=== PATIENT | female | born 1995 | race Caucasian/White ===

== ENCOUNTER 2018-12-23 08:03 | Emergency (ER) | payer MEDICAID ==
--- NOTE | 2018-12-23 08:32 | NUR ---
BIB FATHER C/O FRONTAL ALEXANDER&NAUSEA X 1 DAY. DENIES V/D.DENIES N/V/D; SKIN IS PINK/WARM/DRY; AAOX4 WITH EVEN AND STEADY GAIT; LUNGS CLEAR BL; HR EVEN AND REGULAR; PT DENIES ANY FEVER, CP, SOB, OR COUGH AT THIS TIME; PATIENT STATES PAIN OF 8/10 AT THIS TIME;PATIENT POSITIONED FOR COMFORT; HOB ELEVATED; BEDRAILS UP X1; BED DOWN. ER MD MADE AWARE OF PT STATUS.
--- NOTE | 2018-12-23 08:40 | NUR ---
FOR TRIAGE SEE PAPER CHARTING
[2018-12-23] MEDS ORDERED: diphenhydrAMINE 50 MG/ML VIAL IM ONE (08:45)
[2018-12-23] MEDS ORDERED: PROCHLORPERAZINE 10 MG/2 ML VIAL IM ONE (08:45)
[2018-12-23 09:13] VITALS: BP 107/71
== END 2018-12-23 09:11 | disposition home or self-care (01) ==
LOC: MED 08:03
DX: G43.909 Migraine, unspecified, not intractable, without status migrainosus (principal)
CPT/HCPCS: 96372; 99283; J0780; J1200; 81002; 81025

== ENCOUNTER 2019-08-30 15:51 | Emergency (ER) | payer MEDICAID ==
[~2019-08-30] VITALS: Ht 157.5 cm; Wt 64.9 kg
[2019-08-30 15:53] VITALS: BP 114/54
[2019-08-30 16:53] LABS: APPEARANCE,URINE SL CLOUDY (CLEAR); BILIRUBIN,URINE NEGATIVE (NEGATIVE); BLOOD, URINE 3+ (NEGATIVE); COLOR,URINE AMBER (YELLOW); LEUKOCYTE ESTERASE ,URINE 1+ (NEGATIVE); NITRITE, URINE POSITIVE (NEGATIVE); UGLUCOSE NEGATIVE (NEGATIVE)
[2019-08-30 17:15] LABS: BASOPHILS # (AUTO) 0.1 K/uL (0.00-0.22); BASOPHILS % (AUTO) 0.6 % (0.0-2.0); EOSINOPHILS # (AUTO) 0.1 K/uL (0-0.4); EOSINOPHILS % (AUTO) 1.1 % (0.0-4.0); HEMATOCRIT 40.5 % (36-48); HEMOGLOBIN 13.4 g/dL (12.0-16.0); LYMPHOCYTES # (AUTO) 2.6 K/uL (2.5-16.5); LYMPHOCYTES % (AUTO) 25.2 % (20.5-51.1); MEAN CORPUSCULAR HEMOGLOBIN 30 pg (27-31); MEAN CORPUSCULAR HGB CONC 33 g/dL (33-37); MEAN CORPUSCULAR VOLUME 89.7 fL (80-94); MONOCYTES # (AUTO) 0.7 K/uL (0.8-1.0); MONOCYTES % (AUTO) 6.5 % (1.7-9.3); NEUTROPHILS # (AUTO) 6.8 K/uL (1.8-7.7); NEUTROPHILS % (AUTO) 66.6 % (42.2-75.2); PLATELET COUNT (AUTO) 329 K/uL (140-450); RED BLOOD CELL COUNT(AUTO) 4.51 MIL/uL (4.20-5.40); RED CELL DISTRIBUTION WIDTH 13.8 % (11.6-13.7); WHITE BLOOD COUNT (AUTO) 10.2 K/uL (4.8-10.8)
[2019-08-30 17:25] LABS: RBC,URINE >20 (MANY) /HPF (0-5); WBC,URINE >25 (MANY) /HPF (0-5)
[2019-08-30 17:36] LABS: ALBUMIN 3.8 g/dL (3.4-5.0); ANION GAP 7.9 (8-16); CARBON DIOXIDE 30.7 mmol/L (21-32); CREATININE 0.6 mg/dL (0.6-1.3); POTASSIUM 3.6 mmol/L (3.5-5.1); TOTAL BILIRUBIN 1.1 mg/dL (0.0-1.0)
--- NOTE | 2019-08-30 17:49 | NUR ---
Stable. VSS. C/O Pain. Awaiting Preg for meds.
[2019-08-30] MEDS ORDERED: KETOROLAC 30 MG/ML VIAL IM ONE (17:55)
[2019-08-30 18:23] VITALS: BP 114/78
--- NOTE | 2019-08-30 18:25 | NUR ---
Stable. VSS. Afebrile. Minimal pain. MD has reassessed and Dc'd home. To exit
== END 2019-08-30 18:27 | disposition home or self-care (01) ==
LOC: MED 15:51
DX: N39.0 Urinary tract infection, site not specified (principal)
CPT/HCPCS: 36415; 76856; 80053; 81001; 81025; 85025; 87086; 93976; 96372; 99284; J1885; Q0092

== ENCOUNTER 2021-01-27 15:30 | Emergency (ER) | payer MEDICAID ==
[~2021-01-27] VITALS: Ht 157.5 cm; Wt 93.0 kg
[2021-01-27 15:59] VITALS: BP 129/79
--- NOTE | 2021-01-27 16:03 | NUR ---
ASKED PT TO WAIT IN LOBBY.
--- NOTE | 2021-01-27 17:00 | NUR ---
PT AMBULATED TO BED
--- NOTE | 2021-01-27 17:00 | NUR ---
Patient ambulated to bed 11 with steady/even gait.
[2021-01-27] MEDS ORDERED: ERYT5OIN51 OP (17:01)
--- NOTE | 2021-01-27 17:04 | NUR ---
25 y/o F BIB family with c/c Left eye swelling/pain. Patient A&Ox4, ambulatory, states left eye swelling that began night. Patient reports left eye stye with swelling and redness with +bleeding +white drainage +tears +"scratchy" feeling on left eye. Patient reports 5/10, dull/constant, non-radiating pain that worsens with looking down. Patient states Stye eye drops with temporary ~20min relief. Patient denies fever, chills, hives, rashes, injury. Bed locked in lowest position, side rails x 1, call light in reach. PMH/Sx/Meds: Denies NKA
--- NOTE | 2021-01-27 17:05 | NUR ---
YG Arnold is evaluating patient at bedside.
[2021-01-27 17:18] VITALS: BP 129/79
--- NOTE | 2021-01-27 17:18 | NUR ---
Patient discharged with v/s stable. Written and verbal after care instructions given and explained. Patient alert, oriented and verbalized understanding of instructions. Ambulatory with steady gait. All questions addressed prior to discharge. ID band removed. Patient advised to follow up with PMD. Rx of Erythromycin Ointment given. Patient educated on indication of medication including possible reaction and side effects. Opportunity to ask questions provided and answered.
== END 2021-01-27 17:18 | disposition home or self-care (01) ==
LOC: MED 15:30
DX: H00.015 Hordeolum externum left lower eyelid (principal); Z79.899 Other long term (current) drug therapy
CPT/HCPCS: 99283